=== PATIENT | male | born 1990 ===

== ENCOUNTER 2019-11-12 04:41 | Inpatient (IN) | payer OTHER ==
[~2019-11-12] VITALS: Ht 175.3 cm; Wt 79.6 kg
--- NOTE | 2019-11-12 05:13 | NUR ---
PT STATED "HE JUST MOVED HERE FROM [place] 1 DAY AGO, AND THAT HE WAS SEEN AT ER IN [place] 2X FOR SAME THING. I USED TO DRINK A LOT BUT NOT ANY MORE"
[2019-11-12] MEDS ORDERED: ONDANSETRON 2MG/ML, 2ML ONE (05:29)
[2019-11-12] MEDS ORDERED: METOCLOPRAMIDE 5 MG/ML, 2ML ONE (05:29)
[2019-11-12] MEDS ORDERED: DIPHENHYDRAMINE 50 MG/ML, 1ML ONE (05:29)
[2019-11-12] MEDS ORDERED: SODIUM CHLORIDE 0.9% 1,000ML IVBOLUS ONE (05:30)
[2019-11-12] MEDS ORDERED: DIPHENHYDRAMINE 50 MG/ML, 1ML IVPush ONE (05:30)
[2019-11-12] MEDS ORDERED: ONDANSETRON 2MG/ML, 2ML IVPush ONE (05:30)
[2019-11-12] MEDS ORDERED: METOCLOPRAMIDE 5 MG/ML, 2ML IVPush ONE (05:30)
[2019-11-12] MEDS ORDERED: PANTOPRAZOLE 40 MG IV IV ONE (05:30)
[2019-11-12] MEDS ORDERED: PANTOPRAZOLE 40 MG IV ONE (05:36)
[2019-11-12 05:41] LABS: BASOPHILS # (AUTO) 0.04 x10^3/uL (0-0.1); BASOPHILS % (AUTO) 1 % (0-1); EOSINOPHILS # (AUTO) 0.06 x10^3/uL (0-0.4); EOSINOPHILS % (AUTO) 1 % (1-7); LYMPHOCYTES # (AUTO) 1.22 x10^3/uL (1-3.4); LYMPHOCYTES % (AUTO) 20 % (22-44); MD NO; MEAN CORPUSCULAR HEMOGLOBIN 30.6 pg (27.5-34.5); MEAN CORPUSCULAR HGB CONC 33.4 g/dL (33.2-36.2); MEAN CORPUSCULAR VOLUME 91.7 fL (81-97); MEAN PLATELET VOLUME 7.6 fL (7.4-10.4); MONOCYTES # (AUTO) 0.44 x10^3/uL (0.2-0.8); MONOCYTES % (AUTO) 7 % (2-9); NEUTROPHILS # (AUTO) 4.27 x10^3/uL (1.8-6.8); NEUTROPHILS % (AUTO) 71 % (42-75); PLATELET COUNT 270 x10^3/uL (130-400); RED BLOOD COUNT 4.97 x10^6/uL (4.38-5.82); RED CELL DISTRIBUTION WIDTH 17.8 % (9.4-14.8)
[2019-11-12 05:48] LABS: INTERNATIONAL NORMALIZED RATIO 0.94 (0.93-1.1)
[2019-11-12 05:49] LABS: ALANINE AMINOTRANSFERASE 37 U/L (12-78); ANION GAP 11 mmol/L (5-15); CALCIUM 9.6 mg/dL (8.5-10.1); CHLORIDE 110 mmol/L (98-107); CREATININE 1.07 mg/dL (0.7-1.3)
[2019-11-12 05:50] LABS: ALKALINE PHOSPHATASE 47 U/L (45-117); BILIRUBIN,TOTAL 1.4 mg/dL (0.2-1.0); TOTAL PROTEIN 7.2 g/dL (6.4-8.2)
--- NOTE | 2019-11-12 06:26 | NUR ---
PT AMBULATED TO BATHROOM WITH STEADY GAIT.
[2019-11-12] MEDS ORDERED: LORazepam 2 MG/ML, 1ML IVPush ONE ×2 (06:30→07:30)
[2019-11-12] MEDS ORDERED: LORazepam 2 MG/ML, 1ML ONE ×2 (06:33→07:20)
--- NOTE | 2019-11-12 06:40 | NUR ---
PT STATED "HE WAS VERY ANXIOUS AND ASKED FOR ANXIETY MEDS" PT ALSO AWARE HE NEEDS TO PROVIDE A STOOL SAMPLE
--- NOTE | 2019-11-12 07:03 | NUR ---
BEDSIDE REPORT FROM GRAEME RN, PT RESTING IN [facility] AT BEDSIDE FOR REASSESSMENT
[2019-11-12] MEDS ORDERED: PROMETHAZINE 25 MG/ML, 1ML ONE (07:19)
[2019-11-12] MEDS ORDERED: PROMETHAZINE 25 MG/ML, 1ML IM ONE (07:30)
[2019-11-12] MEDS ORDERED: CHLORDIAZEPOXIDE 25 MG CAPSULE ONE ×2 (08:18→15:27)
[2019-11-12] MEDS ORDERED: CHLORDIAZEPOXIDE 25 MG CAPSULE PO ONE (08:30)
--- NOTE | 2019-11-12 09:00 | NUR ---
STOOL SAMPLE COLLECTED AND WALKED TO LAB
--- NOTE | 2019-11-12 09:53 | NUR ---
PT RESTING IN [place], NO NEEDS AT THIS TIME. STATES FEELS BETTER AFTER MEDICATION BUT STILL NAUSEATED AND STATES HE HAD 2X EPISODES OF VOMITING. NOTIFIED. PT TO BE ADMITTED
[2019-11-12 10:06] LABS: CLOSTRIDIUM DIFFICILE ANTIGEN NEGATIVE; CLOSTRIDIUM DIFFICILE TOXIN NEGATIVE (Negative)
--- NOTE | 2019-11-12 10:44 | NUR ---
PT RESTING IN [facility], AWAITING BED ASSIGMENT, CALL LIGHT WITHIN REACH.
--- NOTE | 2019-11-12 12:21 | NUR ---
TASK RN: PT RESTING ON GURNEY, C/O NAUSEA, AVALOS, AND FEELING ANXIOUS. VSS. FALL PRECAUTIONS IN PLACE. CALL LIGHT WITHIN REACH.
--- NOTE | 2019-11-12 12:27 | NUR ---
LUNCH TRAY PROVIDED.
--- NOTE | 2019-11-12 13:26 | NUR ---
MD NOTIFIED OF PT REQUESTING MORE ATIVAN, ADDITIONAL MEDICATIONS ORDERED. PT HAS NOT BEEN SEEN BY ADMITTING MD YET, MD TO REMIND ADMITTING MD OF PT ON SERVICE.
[2019-11-12] MEDS ORDERED: LORazepam 1MG TABLET PO ONE (13:30)
[2019-11-12] MEDS ORDERED: LORazepam 1MG TABLET ONE (13:35)
[2019-11-12] MEDS ORDERED: ACETAMINOPHEN 325 MG TABLET PO PRN (14:00)
[2019-11-12] MEDS ORDERED: hydrALAzine 20 MG/ML, 1ML IVPush PRN (14:00)
--- NOTE | 2019-11-12 14:00 | NUR ---
ADMITTING MD AT BEDSIDE
[2019-11-12] MEDS ORDERED: LORazepam 2 MG/ML, 1ML IV PRN ×4 (14:30)
[2019-11-12 14:37] LABS: C-REACTIVE PROTEIN, QUANT 0.02 mg/dL (0.02-0.49)
--- NOTE | 2019-11-12 15:22 | NUR ---
ADDITIONAL STOOL TESTS ORDERED, LAB CALLED TO NOTIFY, PER LAB OK TO ADD TO STOOL SAMPLE ALREADY IN LAB.
--- NOTE | 2019-11-12 15:25 | NUR ---
HOSPITAL BED ORDERED FOR PT
[2019-11-12] MEDS: SODIUM CHLORIDE 0.9% 1,000 ML IV SCH (15:33)
[2019-11-12] MEDS: CHLORDIAZEPOXIDE 25 MG CAPSULE PO SCH ×2 (15:33→20:41)
--- NOTE | 2019-11-12 15:37 | NUR ---
PT TO CT
--- NOTE | 2019-11-12 16:28 | NUR ---
REPORT FROM ANDREW FLOYD. PT CARE RESPONSIBLITIES ASSUMED.
--- NOTE | 2019-11-12 17:47 | NUR ---
REPORT TO ANDREW STRINGER. CALL LIGHT IN REACH.
[2019-11-12 18:32] VITALS: BP 115/74
[2019-11-12] MEDS: ONDANSETRON 2MG/ML, 2ML IVPush PRN (19:56)
[2019-11-12] MEDS: morphine SULFATE 10 MG/ML, 1ML IVPush PRN (20:42)
[2019-11-12] MEDS: PANTOPRAZOLE 40 MG IV IVPush SCH (20:43)
[2019-11-12] MEDS: LORazepam 2 MG/ML, 1ML IV PRN (22:44)
[2019-11-13 01:39] VITALS: BP 116/81
[2019-11-13] MEDS: CHLORDIAZEPOXIDE 25 MG CAPSULE PO SCH ×4 (02:30→20:02)
[2019-11-13 04:50] LABS: BASOPHILS # (AUTO) 0.04 x10^3/uL (0-0.1); BASOPHILS % (AUTO) 1 % (0-1); EOSINOPHILS # (AUTO) 0.16 x10^3/uL (0-0.4); EOSINOPHILS % (AUTO) 4 % (1-7); LYMPHOCYTES # (AUTO) 1.47 x10^3/uL (1-3.4); LYMPHOCYTES % (AUTO) 39 % (22-44); MD NO; MEAN CORPUSCULAR HGB CONC 32.5 g/dL (33.2-36.2); MEAN CORPUSCULAR VOLUME 92.4 fL (81-97); MEAN PLATELET VOLUME 7.9 fL (7.4-10.4); MONOCYTES # (AUTO) 0.46 x10^3/uL (0.2-0.8); MONOCYTES % (AUTO) 12 % (2-9); NEUTROPHILS % (AUTO) 43 % (42-75); PLATELET COUNT 207 x10^3/uL (130-400); RED BLOOD COUNT 4.55 x10^6/uL (4.38-5.82); RED CELL DISTRIBUTION WIDTH 17.1 % (9.4-14.8)
[2019-11-13 04:55] LABS: CHLORIDE 108 mmol/L (98-107)
[2019-11-13 05:13] LABS: ALANINE AMINOTRANSFERASE 29 U/L (12-78); ALBUMIN 3.1 g/dL (3.4-5.0); ALKALINE PHOSPHATASE 38 U/L (45-117); ANION GAP 8 mmol/L (5-15); BILIRUBIN,TOTAL 2.2 mg/dL (0.2-1.0); CALCIUM 8.6 mg/dL (8.5-10.1); CREATININE 0.87 mg/dL (0.7-1.3); TOTAL PROTEIN 5.9 g/dL (6.4-8.2)
[2019-11-13] MEDS: morphine SULFATE 10 MG/ML, 1ML IVPush PRN ×5 (05:37→23:13)
[2019-11-13] MEDS: ONDANSETRON 2MG/ML, 2ML IVPush PRN ×3 (05:38→20:03)
[2019-11-13] MEDS: LORazepam 2 MG/ML, 1ML IV PRN ×2 (05:39→12:17)
[2019-11-13] MEDS: SODIUM CHLORIDE 0.9% 1,000 ML IV SCH ×2 (05:49→17:34)
[2019-11-13 06:42] VITALS: BP 113/71
[2019-11-13] MEDS: PANTOPRAZOLE 40 MG IV IVPush SCH ×2 (08:24→20:02)
[2019-11-13 12:04] VITALS: BP 120/74
[2019-11-13] MEDS ORDERED: MORPHINE SULFATE 4 MG/ML, 1ML ONE (13:39)
[2019-11-13 18:19] VITALS: BP 129/86
[2019-11-13] MEDS ORDERED: MELATONIN 5 MG TABLET PO ONE (21:30)
[2019-11-14] MEDS: SODIUM CHLORIDE 0.9% 1,000 ML IV SCH ×2 (01:19→08:03)
[2019-11-14] MEDS: CHLORDIAZEPOXIDE 25 MG CAPSULE PO SCH ×2 (02:34→08:03)
[2019-11-14 02:37] VITALS: BP 119/79
[2019-11-14] MEDS: ONDANSETRON 2MG/ML, 2ML IVPush PRN ×3 (02:38→14:48)
[2019-11-14 06:33] VITALS: BP 142/90
[2019-11-14] MEDS: morphine SULFATE 10 MG/ML, 1ML IVPush PRN ×2 (06:43→10:01)
[2019-11-14] MEDS: PANTOPRAZOLE 40 MG IV IVPush SCH (08:03)
[2019-11-14] MEDS: CHOLECALCIFEROL 5,000u TAB PO SCH (08:03)
[2019-11-14] MEDS: PANTOPRAZOLE 20MG TABLET PO SCH (12:30)
[2019-11-14 14:18] VITALS: BP 119/82
[2019-11-14] MEDS ORDERED: DIPHENHYDRAMINE 12.5MG/5ML, 10ML UDC PO PRN (16:00)
[2019-11-14] MEDS: LORazepam 2 MG/ML, 1ML IV PRN ×2 (17:56→22:45)
[2019-11-14 20:15] VITALS: BP 124/85
[2019-11-15] MEDS: PANTOPRAZOLE 20MG TABLET PO SCH (06:15)
[2019-11-15 06:17] VITALS: BP 133/92
[2019-11-15] MEDS ORDERED: OMEP20TA62 PO (08:28)
[2019-11-15] MEDS: CHOLECALCIFEROL 5,000u TAB PO SCH (08:39)
[2019-11-15] MEDS ORDERED: LACTULOSE 10 GM/15 ML UDC PO STA (08:52)
[2019-11-15] MEDS ORDERED: ONDANSETRON 4 MG TABLET PO PRN (10:30)
== END 2019-11-15 12:20 | disposition home or self-care (01) | DRG 377 ==
LOC: ED 08:27 → EDIP 09:09 → 4WST 18:15 → DCLOUNGE 11-15 12:05
PROVIDERS: ADMIT Hospitalist; ATTEND Hospitalist
DX: K29.71 Gastritis, unspecified, with bleeding (principal); N17.0 Acute kidney failure with tubular necrosis; F10.239 Alcohol dependence with withdrawal, unspecified; K70.10 Alcoholic hepatitis without ascites; E86.0 Dehydration; F12.90 Cannabis use, unspecified, uncomplicated; F41.9 Anxiety disorder, unspecified
CPT/HCPCS: 36415; 74176; 74240; 80053; 80307; 82306; 82607; 82728; 83540; 83550; 83690; 83735; 83993; 84100; 84443; 84466; 85025; 85610; 85730; 86140; 87252; 87324; 87338; 89055; 93005; 96372; 96374; 96375; 96376; 99285; G0378; J2405; J2550; C9113; J1200; J2060; J2270; J2765; J7030